=== PATIENT | male | born 1995 | race African-American/Black ===

== ENCOUNTER 2019-04-06 18:55 | Emergency (ER) | payer MEDICARE ==
[~2019-04-06] VITALS: Ht 182.9 cm; Wt 49.9 kg
[2019-04-06 19:30] LABS: URINE BLOOD TRACE (Negative); URINE CLARITY CLEAR; URINE COLOR YELLOW; URINE GLUCOSE-RANDOM NEGATIVE (Negative); URINE NITRITE-REFLEX NEGATIVE (Negative); URINE PROTEIN 2+ (Negative)
[2019-04-06 19:31] LABS: ABSOLUTE BASOPHILS 0.1 thou/uL (0.0-0.2); ABSOLUTE EOSINOPHILS 0.1 thou/uL (0.0-0.7); ABSOLUTE LYMPHOCYTES 2.7 thou/uL (0.8-5.3); ABSOLUTE MONOCYTES 0.8 thou/uL (0.0-1.2); ABSOLUTE NEUTROPHILS 7.9 thou/uL (1.6-8.1); BASOPHILS 0.6 %; EOSINOPHILS 0.8 %; HEMATOCRIT 36.7 % (42.0-52.0); HEMOGLOBIN 12.4 gm/dL (14.0-18.0); LYMPHOCYTES 23.5 %; MCH 32.4 pg (26.0-34.0); MCHC 33.9 g/dL (28.0-37.0); MCV 95.5 fL (80.0-100.0); MONOCYTES 6.8 %; MPV 8.6 fl. (7.2-11.1); NUCLEATED RBCS 0 /100WBC; PLATELET COUNT* 276 thou/uL (150-400); POLYS 68.3 %; RBC 3.84 mil/uL (4.50-6.00); WBC 11.6 thou/uL (4.0-11.0)
[2019-04-06 19:32] LABS: URINE BILIRUBIN 1+ (Negative); URINE KETONES 3+ (Negative); URINE LEUKOCYTES-REFLEX 3+ (Negative)
[2019-04-06 19:34] LABS: ACETEST (KETONE CONFIRMATORY) Large (Negative); ICTOTEST (BILI CONFIRMATORY) Negative (Negative)
[2019-04-06 19:44] LABS: CALCIUM 9.2 mg/dL (8.5-10.1); CREATININE 0.9 mg/dL (0.6-1.3); POTASSIUM 3.3 mmol/L (3.5-5.1)
[2019-04-06 19:46] LABS: CASTS None Seen /LPF (None Seen); CRYSTALS None Seen /LPF (None Seen); SQUAMOUS 0-3 Few /LPF (0-3); URINE RBC 0-2 Rare /HPF (0-2)
[2019-04-06 19:48] LABS: ALBUMIN 4.3 g/dL (3.4-5.0); TOTAL BILIRUBIN 2.8 mg/dL (<0.1-1.0); TOTAL PROTEIN 8.8 g/dL (6.4-8.2)
[2019-04-06] MEDS ORDERED: ONDANSETRON HCL4 M2 PO (21:20)
[2019-04-06] MEDS ORDERED: DOXYCYCLINE MO100 M1 PO (21:20)
[2019-04-06] MEDS ORDERED: NORCO 5-325 TA1 EAC1 PO (21:20)
[2019-04-06] MEDS ORDERED: KEFLEX500 M1 PO (21:20)
[2019-04-06 21:35] VITALS: BP 108/70
== END 2019-04-06 21:35 | disposition home or self-care (01) ==
LOC: M.ERS 18:55
PROVIDERS: Physician Assistant
DX: N39.0 Urinary tract infection, site not specified (principal); R11.2 Nausea with vomiting, unspecified; E80.7 Disorder of bilirubin metabolism, unspecified; H66.93 Otitis media, unspecified, bilateral; Z88.6 Allergy status to analgesic agent

== ENCOUNTER 2019-11-26 11:13 | Emergency (ER) | payer MEDICARE ==
[~2019-11-26] VITALS: Ht 182.9 cm; Wt 59.0 kg
[~2019-11-26 11:13] MED LIST: DOXYCYCLINE MO100 M1 PO; KEFLEX500 M1 PO; NORCO 5-325 TA1 EAC1 PO; ONDANSETRON HCL4 M2 PO
[2019-11-26] MEDS ORDERED: SUPER THERAVIT1 EACH PO (11:32)
[2019-11-26 12:15] VITALS: BP 117/76
== END 2019-11-26 12:18 | disposition home or self-care (01) ==
LOC: M.ERS 11:13
DX: M54.5 Low back pain (principal); G89.29 Other chronic pain; Z88.6 Allergy status to analgesic agent

== ENCOUNTER 2021-01-27 10:28 | Emergency (ER) | payer MEDICARE ==
[~2021-01-27] VITALS: Ht 182.9 cm; Wt 59.0 kg
[~2021-01-27 10:28] MED LIST changes: +SUPER THERAVIT1 EACH PO
[2021-01-27] MEDS ORDERED: DOXYCYCLINE 10100 MG PO (12:32)
[2021-01-27 13:02] LABS: URINE BILIRUBIN NEGATIVE (Negative); URINE BLOOD NEGATIVE (Negative); URINE CLARITY CLEAR; URINE COLOR YELLOW; URINE GLUCOSE-RANDOM NEGATIVE (Negative); URINE KETONES NEGATIVE (Negative); URINE LEUKOCYTES-REFLEX 1+ (Negative); URINE PROTEIN NEGATIVE (Negative); URINE SPECIFIC GRAVITY 1.015 (1.005-1.030)
[2021-01-27 13:03] LABS: URINE NITRITE-REFLEX POSITIVE (Negative)
[2021-01-27] MEDS ORDERED: BACTRIM DS TAB1 EACH PO (13:14)
[2021-01-27 13:26] VITALS: BP 105/64
[2021-01-27 13:29] LABS: BACTERIA-REFLEX >30 Many /HPF (None Seen); CASTS None Seen /LPF (None Seen); CRYSTALS None Seen /LPF (None Seen); SQUAMOUS 0-3 Few /LPF (0-3); URINE RBC None Seen /HPF (0-2); URINE WBC-REFLEX 6-15 Few /HPF (0-5)
== END 2021-01-27 13:27 | disposition home or self-care (01) ==
LOC: M.ERS 10:28
PROVIDERS: Physician Assistant
DX: Z20.2 Contact with and (suspected) exposure to infections with a predominantly sexual mode of transmission (principal); N39.0 Urinary tract infection, site not specified; Z88.6 Allergy status to analgesic agent